=== PATIENT | female | born 1965 | race Caucasian/White ===

== ENCOUNTER 2016-10-25 13:46 | Emergency (ER) ==
[2016-10-25 14:14] LABS: URINE CULTURE PL NEEDED? NO; URINE SOURCE CLEAN CATCH
[2016-10-25 14:18] LABS: MANUAL DIFF NEEDED? NO
[2016-10-25 14:19] LABS: UR AMPHETAMINES QUAL NONE DETECTED (NONE DETECT); UR BARBITUATES QUAL NONE DETECTED (NONE DETECT); UR BENZODIAZEPIN QUAL NONE DETECTED (NONE DETECT); UR CANNABINOIDS QUAL NONE DETECTED (NONE DETECT); UR COCAINE QUAL NONE DETECTED (NONE DETECT); UR MDMA QUAL NONE DETECTED (NONE DETECT); UR METHADONE QUAL NONE DETECTED (NONE DETECT); UR METHAMPHETAMINE QUAL NONE DETECTED (NONE DETECT); UR OPIATES QUAL NONE DETECTED (NONE DETECT); UR OXYCODONE QUAL NONE DETECTED (NONE DETECT); UR PCP QUAL NONE DETECTED (NONE DETECT); UR TCA QUAL NONE DETECTED (NONE DETECT)
[2016-10-25 14:20] LABS: BILIRUBIN URINE NEGATIVE (NEGATIVE); BLOOD URINE NEGATIVE (NEGATIVE); CLARITY CLEAR (CLEAR); COLOR YELLOW; GLUCOSE URINE NEGATIVE (NEGATIVE); LEUKOCYTES URINE NEGATIVE (NEGATIVE); NITRITE URINE NEGATIVE (NEGATIVE); PH URINE 6.5; PROTEIN URINE NEGATIVE (NEGATIVE); SP GRAVITY URINE 1.005; UROBILINOGEN URINE NORMAL
[2016-10-25 14:24] LABS: BASO% 0.6 % (0.0-0.8); EOS# 0.02 X1000 (0.0-0.7); EOS% 0.3 % (0.0-10.0); HEMATOCRIT 47.4 % (37.0-47.0); HEMOGLOBIN 16.2 g/dL (12.0-16.0); IMM GRAN# 0.01 X1000 (0.0-0.04); IMM GRAN% 0.1 % (0.0-0.5); LYMPH# 1.94 X1000 (1.2-3.4); LYMPH% 27.3 % (20.5-51.1); MCH 31.1 PG (27-31); MCHC 34.2 g/dL (33-37); MONO# 0.45 X1000 (0.11-0.59); MONO% 6.3 % (1.7-9.3); NEUT% 65.4 % (42.2-75.2); PLT 296 X1000 (130-400); RBC 5.21 XMIL (4.2-5.4)
--- NOTE | 2016-10-25 14:24 | PROVIDER DOCUMENTATION ---
HPI-Psychological Disorder - General Source: patient - History of Present Illness-Psych Onset/Duration: reports: last night Timing: reports: still present Severity: reports: moderate Situational problems related to:: reports: recent Psychiatric Complaints: reports: suicidal ideation Substance Use: reports: none/never Previous psych related hospitalizations?: Yes Patient arrived by:: private car Similar Symptoms Previously?: Yes Recently seen or treated by another doctor?: No <Jewels Del Rio - Last Filed: 10/25/16 18:04> <Alphonse Carreno - Last Filed: 10/25/16 21:13> <Shannan Robertson - Last Filed: 10/25/16 21:17> - General Chief Complaint: Psych Stated Complaint: suicidal ideation Time Seen by Provider: 10/25/16 13:59 Allergies/Adverse Reactions: Patient Allergies Allergy/AdvReac Type Severity Reaction Status Date / Time codeine Allergy Intermediate VOMITING Verified 10/25/16 13:52 hydrocodone bitartrate * Allergy Intermediate VOMITING Verified 10/25/16 13:52 [From Lortab] Home Medications: Home Medication List Medication Instructions Recorded Confirmed Last Taken Type Buspirone [Buspar] 5 mg PO TID 10/25/16 10/25/16 Unknown History Buspirone [Buspar] 5 mg PO TID #90 tablet 10/25/16 Unknown Rx Doxepin [Sinequan] 25 mg PO DAILY 10/25/16 10/25/16 Unknown History Doxepin [Sinequan] 25 mg PO DAILY #30 capsule 10/25/16 Unknown Rx Vortioxetine Hydrobromide 10 mg PO DAILY 10/25/16 10/25/16 Unknown History [Trintellix] Vortioxetine Hydrobromide 10 mg PO DAILY #30 tablet 10/25/16 Unknown Rx [Trintellix] - History of Present Illness-Psych Nature of Presenting Problem: Reports hx of Bipolar compliant with medications reports SI. States could feel the bipolar getting worse past two weeks then a family member and last night pt started cutting wrist. Reports has been to [facility] before. Reports no plan. (Jewels Del Rio) Review of Systems - Adult - REVIEW OF SYSTEMS - ADULT Constitutional: denies: chills, fever, fatique Eyes: reports: no symptoms reported Ears, Nose, Mouth & Throat: denies: ear pain, sinus problem, throat pain Cardiovascular: denies: chest pain, irregular heart rate, orthopnea Respiratory: reports: no symptoms reported Gastrointestinal: reports: no symptoms reported Genitourinary: reports: no symptoms reported Musculoskeletal: reports: no symptoms reported Integumentary: reports: no symptoms reported Neurological: reports: no symptoms reported Psychiatric: reports: see HPI, suicidal thoughts. denies: anxiety, depression, emotional problems, panic attacks Endocrine: reports: no symptoms reported Hematologic/Lymphatic: reports: no symptoms reported Allergic/Immunologic: reports: no symptoms reported All Other Systems: Reviewed and Negative <Jewels Del Rio - Last Filed: 10/25/16 18:04> Past History - Adult - PAST MEDICAL HISTORY-ADULT Review of Records: reports: Nursing Assessment Review Major Childhood Illnesses: reports: denies history Cardiovascular: reports: denies history Respiratory: reports: denies history Gastrointestinal: reports: denies history Obstetrical/Gynecological: reports: denies history Genitourinary: reports: denies history Musculoskeletal: reports: denies history Neurological: reports: denies history Psychiatric: reports: bipolar, depression, ptsd, suicide attempt Endocrine/Immune: reports: denies history Other Conditions: reports: denies history - PRIOR SURGERIES/PROCEDURES Surgical/Procedure History: reports: hysterectomy, hernia repair - IMMUNIZATION STATUS Childhood Immunizations: See Nurse Assessment Flu Vaccine: See Nurse Assessment - FAMILY HISTORY Family History: reviewed, not pertinent - SOCIAL HISTORY Smoking: cigarettes, greater than 1 pack/day Provider spent 3-5 mins advising pt. on dangers of tobacco.: Discussed manners to quit use, and f/u contacts for add'l counseling. Substance Use: alcohol <Jewels Del Rio - Last Filed: 10/25/16 18:04> Physical Exam-Psych Focus - Physical Exam-Psych Initial Vital Signs Reviewed: Yes Appearance: appropriate appearance, appropriate insight, neat, no apparent distress, alert Neurological: alert, normal mood/affect, calm, data technician II-XII nml as tested, oriented x 3 Behavior/Eye Contact/Speech: cooperative, good eye contact, normal speech Thoughts/Hallucinations: normal thought pattern, no apparent hallucination Neck: non-tender, full range of motion, supple, normal inspection Respiratory: chest non-tender, lungs clear, normal breath sounds, no pleuratic chest pain, no respiratory distress, no accessory muscle use Cardiovascular: regular rate, rhythm Abdominal Exam: non tender, soft, no organomegaly, no pulsatile mass Extremity: normal range of motion, non-tender Integumentary: normal color, normal turgor, warm/dry <Jewels Del Rio - Last Filed: 10/25/16 18:04> Progress - REASSESSMENT Reassessment #1 Time Reassessed: 15:50 (Pt is in no distress at this time she is in room awaiting on ETOH level to go down before [facility] can be called.) - EKG 1 Time of EKG reading by physician:: 14:13 EKG Read and Signed by:: Brock Christensen EKG Interpretation (*Must complete 3 of following elements*): Normal Rate: 89 Rhythm: nsr [place]: normal QRS: normal [place] Interval: normal ST Wave: normal - CHANGE OF SHIFT REPORT (ED Provider) Report Given and Care Transferred to:: Time of Transfer: 18:00 Items Pending: Other (alcohol level to drop and [facility] consult) <Jewels Del Rio - Last Filed: 10/25/16 18:04> <Alphonse Carreno - Last Filed: 10/25/16 21:13> - PSYCHIATRIC Medically clear for psych eval and/or transfer to [facility].: Yes - CONSULTS/PCP/HOSPITALIST Notification #1 *Consult/PCP/Hospitalist*: Tereso Mann-[facility] Time Discussed: 21:13 (Pt will follow up with out pt treatment and sign a action plan. ) <Shannan Robertson - Last Filed: 10/25/16 21:17> - PLAN OF CARE/RESULTS Progress/Plan/Lab Results: Orders Category Date Time Status ALCOHOL BLOOD Stat Lab 10/25/16 14:14 Received CBC WITH ELECTRONIC DIFF [HEME] Stat Lab 10/25/16 14:14 Results COMPREHENSIVE METABOLIC PANEL [CHEM] Stat Lab 10/25/16 14:14 Received FREE T4 Stat Lab 10/25/16 14:14 Received TEST-URINE [PREG] Stat Lab 10/25/16 13:55 Completed TSH Stat Lab 10/25/16 14:[address] W/POSS RFLX CULT [URINALYSIS] Stat Lab 10/25/16 13:55 Results URINE DRUG SCREEN PL Stat Lab 10/25/16 13:55 Completed VITAMIN B12 Stat Lab 10/25/16 14:14 Received EKG [EKG] Stat Ther 10/25/16 14:05 Ordered Vital Signs - 24 hr 10/25/16 13:49 Temperature 98 F Pulse Rate 97 H Respiratory 18 Rate Blood Pressure 167/108 O2 Sat by Pulse 100 Oximetry Laboratory Tests 10/25/16 10/25/16 10/25/16 13:55 13:55 13:55 Urine Source CLEAN CATCH Urine Color YELLOW Urine Clarity CLEAR Urine pH 6.5 Ur Specific [place] 1.005 Urine Protein NEGATIVE Urine Ketones NEGATIVE Urine Blood NEGATIVE Urine Nitrite NEGATIVE Urine Bilirubin NEGATIVE Urine Urobilinogen NORMAL Urine WBC NEGATIVE Urine Glucose NEGATIVE Urine Test NEGATIVE Urine Opiates Screen NONE DETECTED Ur Oxycodone Screen NONE DETECTED Urine Methadone Screen NONE DETECTED Ur Barbituates Screen NONE DETECTED Ur Tricyclics Screen NONE DETECTED Ur Phencyclidine Scrn NONE DETECTED Ur Amphetamines Screen NONE DETECTED U Methamphetamines Scrn NONE DETECTED Urine MDMA Screen NONE DETECTED U Benzodiazepines Scrn NONE DETECTED Urine Cocaine Screen NONE DETECTED U Cannabinoids Screen NONE DETECTED Laboratory Tests 10/25/16 10/25/16 10/25/16 13:55 13:55 13:55 WBC RBC Hgb Hct MCV MCH MCHC RDW Std Deviation Plt Count MPV Immature Gran % (Auto) Neut % (Auto) Lymph % (Auto) [place] % (Auto) Eos % (Auto) Baso % (Auto) Immature Gran # (Auto) Neut # (Auto) Lymph # (Auto) [place] # (Auto) Eos # (Auto) Baso # (Auto) Sodium Potassium Chloride Carbon Dioxide Anion Gap BUN Creatinine Estimated GFR/1.73 m2 BUN/Creatinine Ratio Glucose Calculated Osmolality Calcium Total Bilirubin AST ALT Alkaline Phosphatase Total Protein Albumin Globulin Albumin/Globulin Ratio Urine Source CLEAN CATCH Urine Color YELLOW Urine Clarity CLEAR Urine pH 6.5 Ur Specific [place] 1.005 Urine Protein NEGATIVE Urine Ketones NEGATIVE Urine Blood NEGATIVE Urine Nitrite NEGATIVE Urine Bilirubin NEGATIVE Urine Urobilinogen NORMAL Urine Microscopic RBC Not Reportable Urine WBC NEGATIVE Urine Microscopic WBC <10 Ur Epithelial Cells >10 A Urine Glucose NEGATIVE Urine Test NEGATIVE Urine Opiates Screen NONE DETECTED Ur Oxycodone Screen NONE DETECTED Urine Methadone Screen NONE DETECTED Ur Barbituates Screen NONE DETECTED Ur Tricyclics Screen NONE DETECTED Ur Phencyclidine Scrn NONE DETECTED Ur Amphetamines Screen NONE DETECTED U Methamphetamines Scrn NONE DETECTED Urine MDMA Screen NONE DETECTED U Benzodiazepines Scrn NONE DETECTED Urine Cocaine Screen NONE DETECTED U Cannabinoids Screen NONE DETECTED Plasma/Serum Ethyl Alc 10/25/16 10/25/16 10/25/16 14:14 14:14 14:14 WBC 7.10 RBC 5.21 Hgb 16.2 H Hct 47.4 H MCV 91.0 MCH 31.1 H MCHC 34.2 RDW Std Deviation 14.0 Plt Count 296 MPV 10.0 Immature Gran % (Auto) 0.1 Neut % (Auto) 65.4 Lymph % (Auto) 27.3 Par[place] % (Auto) 6.3 Eos % (Auto) 0.3 Baso % (Auto) 0.6 Immature Gran # (Auto) 0.01 Neut # (Auto) 4.64 Lymph # (Auto) 1.94 [place] # (Auto) 0.45 Eos # (Auto) 0.02 Baso # (Auto) 0.04 Sodium 139 Potassium 3.7 Chloride 102 Carbon Dioxide 22 L Anion Gap 15 BUN 8 Creatinine 0.8 Estimated GFR/1.73 m2 > 60 BUN/Creatinine Ratio 10 Glucose 77 Calculated Osmolality 275 Calcium 9.4 Total Bilirubin 0.20 AST 28 ALT 30 Alkaline Phosphatase 119 H Total Protein 7.9 Albumin 4.5 Globulin 3.0 Albumin/Globulin Ratio 1.0 Urine Source Urine Color Urine Clarity Urine pH Ur Specific [place] Urine Protein Urine Ketones Urine Blood Urine Nitrite Urine Bilirubin Urine Urobilinogen Urine Microscopic RBC Urine WBC Urine Microscopic WBC Ur Epithelial Cells Urine Glucose Urine Test Urine Opiates Screen Ur Oxycodone Screen Urine Methadone Screen Ur Barbituates Screen Ur Tricyclics Screen Ur Phencyclidine Scrn Ur Amphetamines Screen U Methamphetamines Scrn Urine MDMA Screen U Benzodiazepines Scrn Urine Cocaine Screen U Cannabinoids Screen Plasma/Serum Ethyl Alc 177 H (Jewels Del Rio) Laboratory Tests 10/25/16 10/25/16 10/25/16 13:55 13:55 13:55 WBC RBC Hgb Hct MCV MCH MCHC RDW Std Deviation Plt Count MPV Immature Gran % (Auto) Neut % (Auto) Lymph % (Auto) [place] % (Auto) Eos % (Auto) Baso % (Auto) Immature Gran # (Auto) Neut # (Auto) Lymph # (Auto) [place] # (Auto) Eos # (Auto) Baso # (Auto) Sodium Potassium Chloride Carbon Dioxide Anion Gap BUN Creatinine Estimated GFR/1.73 m2 BUN/Creatinine Ratio Glucose Calculated Osmolality Calcium Total Bilirubin AST ALT Alkaline Phosphatase Total Protein Albumin Globulin Albumin/Globulin Ratio Vitamin B12 TSH Free T4 Urine Source CLEAN CATCH Urine Color YELLOW Urine Clarity CLEAR Urine pH 6.5 Ur Specific [place] 1.005 Urine Protein NEGATIVE Urine Ketones NEGATIVE Urine Blood NEGATIVE Urine Nitrite NEGATIVE Urine Bilirubin NEGATIVE Urine Urobilinogen NORMAL Urine Microscopic RBC Not Reportable Urine WBC NEGATIVE Urine Microscopic WBC <10 Ur Epithelial Cells >10 A Urine Glucose NEGATIVE Urine Test NEGATIVE Urine Opiates Screen NONE DETECTED Ur Oxycodone Screen NONE DETECTED Urine Methadone Screen NONE DETECTED Ur Barbituates Screen NONE DETECTED Ur Tricyclics Screen NONE DETECTED Ur Phencyclidine Scrn NONE DETECTED Ur Amphetamines Screen NONE DETECTED U Methamphetamines Scrn NONE DETECTED Urine MDMA Screen NONE DETECTED U Benzodiazepines Scrn NONE DETECTED Urine Cocaine Screen NONE DETECTED U Cannabinoids Screen NONE DETECTED Plasma/Serum Ethyl Alc 10/25/16 10/25/16 10/25/16 14:14 14:14 14:14 WBC RBC Hgb Hct MCV MCH MCHC RDW Std Deviation Plt Count MPV Immature Gran % (Auto) Neut % (Auto) Lymph % (Auto) [place] % (Auto) Eos % (Auto) Baso % (Auto) Immature Gran # (Auto) Neut # (Auto) Lymph # (Auto) [place] # (Auto) Eos # (Auto) Baso # (Auto) Sodium 139 Potassium 3.7 Chloride 102 Carbon Dioxide 22 L Anion Gap 15 BUN 8 Creatinine 0.8 Estimated GFR/1.73 m2 > 60 BUN/Creatinine Ratio 10 Glucose 77 Calculated Osmolality 275 Calcium 9.4 Total Bilirubin 0.20 AST 28 ALT 30 Alkaline Phosphatase 119 H Total Protein 7.9 Albumin 4.5 Globulin 3.0 Albumin/Globulin Ratio 1.0 Vitamin B12 397 TSH 0.76 Free T4 1.20 Urine Source Urine Color Urine Clarity Urine pH Ur Specific [place] Urine Protein Urine Ketones Urine Blood Urine Nitrite Urine Bilirubin Urine Urobilinogen Urine Microscopic RBC Urine WBC Urine Microscopic WBC Ur Epithelial Cells Urine Glucose Urine Test Urine Opiates Screen Ur Oxycodone Screen Urine Methadone Screen Ur Barbituates Screen Ur Tricyclics Screen Ur Phencyclidine Scrn Ur Amphetamines Screen U Methamphetamines Scrn Urine MDMA Screen U Benzodiazepines Scrn Urine Cocaine Screen U Cannabinoids Screen Plasma/Serum Ethyl Alc 177 H 10/25/16 10/25/16 10/25/16 14:14 17:30 19:04 WBC 7.10 RBC 5.21 Hgb 16.2 H Hct 47.4 H MCV 91.0 MCH 31.1 H MCHC 34.2 RDW Std Deviation 14.0 Plt Count 296 MPV 10.0 Immature Gran % (Auto) 0.1 Neut % (Auto) 65.4 Lymph % (Auto) 27.3 [place] % (Auto) 6.3 Eos % (Auto) 0.3 Baso % (Auto) 0.6 Immature Gran # (Auto) 0.01 Neut # (Auto) 4.64 Lymph # (Auto) 1.94 [place] # (Auto) 0.45 Eos # (Auto) 0.02 Baso # (Auto) 0.04 Sodium Potassium Chloride Carbon Dioxide Anion Gap BUN Creatinine Estimated GFR/1.73 m2 BUN/Creatinine Ratio Glucose Calculated Osmolality Calcium Total Bilirubin AST ALT Alkaline Phosphatase Total Protein Albumin Globulin Albumin/Globulin Ratio Vitamin B12 TSH Free T4 Urine Source Urine Color Urine Clarity Urine pH Ur Specific [place] Urine Protein Urine Ketones Urine Blood Urine Nitrite Urine Bilirubin Urine Urobilinogen Urine Microscopic RBC Urine WBC Urine Microscopic WBC Ur Epithelial Cells Urine Glucose Urine Test Urine Opiates Screen Ur Oxycodone Screen Urine Methadone Screen Ur Barbituates Screen Ur Tricyclics Screen Ur Phencyclidine Scrn Ur Amphetamines Screen U Methamphetamines Scrn Urine MDMA Screen U Benzodiazepines Scrn Urine Cocaine Screen U Cannabinoids Screen Plasma/Serum Ethyl Alc 112 H 82 H Orders Category Date Time Status ALCOHOL BLOOD Stat Lab 10/25/16 14:14 Completed ALCOHOL BLOOD Stat Lab 10/25/16 17:30 Completed ALCOHOL BLOOD Stat Lab 10/25/16 19:04 Completed CBC WITH ELECTRONIC DIFF [HEME] Stat Lab 10/25/16 14:14 Completed COMPREHENSIVE METABOLIC PANEL [CHEM] Stat Lab 10/25/16 14:14 Completed FREE T4 Stat Lab 10/25/16 14:14 Completed TEST-URINE [PREG] Stat Lab 10/25/16 13:55 Completed TSH Stat Lab 10/25/16 14:[address] W/POSS RFLX CULT [URINALYSIS] Stat Lab 10/25/16 13:55 Completed URINE DRUG SCREEN PL Stat Lab 10/25/16 13:55 Completed VITAMIN B12 Stat Lab 10/25/16 14:14 Completed Buspirone [Buspar] Med 10/25/16 21:10 Discontinued 5 mg PO NOW ONE Doxepin [Sinequan] Med 10/25/16 21:11 Discontinued 25 mg PO NOW ONE Lorazepam [Ativan] Med 10/25/16 17:07 Discontinued 1 mg PO NOW ONE EKG [EKG] Stat Ther 10/25/16 14:05 Draft Vital Signs Temp Pulse Resp BP Pulse Ox 10/25/16 13:49 98 F 97 H 18 167/108 100 codeine Allergy (Intermediate, Verified 10/25/16 13:52) VOMITING hydrocodone bitartrate * [From Lortab] Allergy (Intermediate, Verified 10/25/16 13:52) VOMITING Buspirone [Buspar] 5 mg PO TID 10/25/16 Buspirone [Buspar] 5 mg PO TID #90 tablet 10/25/16 Doxepin [Sinequan] 25 mg PO DAILY 10/25/16 Doxepin [Sinequan] 25 mg PO DAILY #30 capsule 10/25/16 Vortioxetine Hydrobromide [Trintellix] 10 mg PO DAILY 10/25/16 Vortioxetine Hydrobromide [Trintellix] 10 mg PO DAILY #30 tablet 10/25/16 Laboratory 10/25/16 10/25/16 10/25/16 19:04 17:30 14:14 WBC 7.10 RBC 5.21 Hgb 16.2 H Hct 47.4 H MCV 91.0 MCH 31.1 H MCHC 34.2 RDW Std Deviation 14.0 Plt Count 296 MPV 10.0 Immature Gran % (Auto) 0.1 Neut % (Auto) 65.4 Lymph % (Auto) 27.3 [place] % (Auto) 6.3 Eos % (Auto) 0.3 Baso % (Auto) 0.6 Immature Gran # (Auto) 0.01 Neut # (Auto) 4.64 Lymph # (Auto) 1.94 [place] # (Auto) 0.45 Eos # (Auto) 0.02 Baso # (Auto) 0.04 Sodium Potassium Chloride Carbon Dioxide Anion Gap BUN Creatinine Estimated GFR/1.73 m2 BUN/Creatinine Ratio Glucose Calculated Osmolality Calcium Total Bilirubin AST ALT Alkaline Phosphatase Total Protein Albumin Globulin Albumin/Globulin Ratio Vitamin B12 TSH Free T4 Urine Source Urine Color Urine Clarity Urine pH Ur Specific [place] Urine Protein Urine Ketones Urine Blood Urine Nitrite Urine Bilirubin Urine Urobilinogen Urine Microscopic RBC Urine WBC Urine Microscopic WBC Ur Epithelial Cells Urine Glucose Urine Test Urine Opiates Screen Ur Oxycodone Screen Urine Methadone Screen Ur Barbituates Screen Ur Tricyclics Screen Ur Phencyclidine Scrn Ur Amphetamines Screen U Methamphetamines Scrn Urine MDMA Screen U Benzodiazepines Scrn Urine Cocaine Screen U Cannabinoids Screen Plasma/Serum Ethyl Alc 82 H 112 H 10/25/16 10/25/16 10/25/16 14:14 14:14 14:14 WBC RBC Hgb Hct MCV MCH MCHC RDW Std Deviation Plt Count MPV Immature Gran % (Auto) Neut % (Auto) Lymph % (Auto) [place] % (Auto) Eos % (Auto) Baso % (Auto) Immature Gran # (Auto) Neut # (Auto) Lymph # (Auto) [place] # (Auto) Eos # (Auto) Baso # (Auto) Sodium 139 Potassium 3.7 Chloride 102 Carbon Dioxide 22 L Anion Gap 15 BUN 8 Creatinine 0.8 Estimated GFR/1.73 m2 > 60 BUN/Creatinine Ratio 10 Glucose 77 Calculated Osmolality 275 Calcium 9.4 Total Bilirubin 0.20 AST 28 ALT 30 Alkaline Phosphatase 119 H Total Protein 7.9 Albumin 4.5 Globulin 3.0 Albumin/Globulin Ratio 1.0 Vitamin B12 397 TSH 0.76 Free T4 1.20 Urine Source Urine Color Urine Clarity Urine pH Ur Specific [place] Urine Protein Urine Ketones Urine Blood Urine Nitrite Urine Bilirubin Urine Urobilinogen Urine Microscopic RBC Urine WBC Urine Microscopic WBC Ur Epithelial Cells Urine Glucose Urine Test Urine Opiates Screen Ur Oxycodone Screen Urine Methadone Screen Ur Barbituates Screen Ur Tricyclics Screen Ur Phencyclidine Scrn Ur Amphetamines Screen U Methamphetamines Scrn Urine MDMA Screen U Benzodiazepines Scrn Urine Cocaine Screen U Cannabinoids Screen Plasma/Serum Ethyl Alc 177 H 10/25/16 10/25/16 10/25/16 13:55 13:55 13:55 WBC RBC Hgb Hct MCV MCH MCHC RDW Std Deviation Plt Count MPV Immature Gran % (Auto) Neut % (Auto) Lymph % (Auto) [place] % (Auto) Eos % (Auto) Baso % (Auto) Immature Gran # (Auto) Neut # (Auto) Lymph # (Auto) [place] # (Auto) Eos # (Auto) Baso # (Auto) Sodium Potassium Chloride Carbon Dioxide Anion Gap BUN Creatinine Estimated GFR/1.73 m2 BUN/Creatinine Ratio Glucose Calculated Osmolality Calcium Total Bilirubin AST ALT Alkaline Phosphatase Total Protein Albumin Globulin Albumin/Globulin Ratio Vitamin B12 TSH Free T4 Urine Source CLEAN CATCH Urine Color YELLOW Urine Clarity CLEAR Urine pH 6.5 Ur Specific [place] 1.005 Urine Protein NEGATIVE Urine Ketones NEGATIVE Urine Blood NEGATIVE Urine Nitrite NEGATIVE Urine Bilirubin NEGATIVE Urine Urobilinogen NORMAL Urine Microscopic RBC Not Reportable Urine WBC NEGATIVE Urine Microscopic WBC <10 Ur Epithelial Cells >10 A Urine Glucose NEGATIVE Urine Test NEGATIVE Urine Opiates Screen NONE DETECTED Ur Oxycodone Screen NONE DETECTED Urine Methadone Screen NONE DETECTED Ur Barbituates Screen NONE DETECTED Ur Tricyclics Screen NONE DETECTED Ur Phencyclidine Scrn NONE DETECTED Ur Amphetamines Screen NONE DETECTED U Methamphetamines Scrn NONE DETECTED Urine MDMA Screen NONE DETECTED U Benzodiazepines Scrn NONE DETECTED Urine Cocaine Screen NONE DETECTED U Cannabinoids Screen NONE DETECTED Plasma/Serum Ethyl Alc (Alphonse Carreno) Departure <Jewels Del Rio - Last Filed: 10/25/16 18:04> - Departure Time of Disposition Order: 21:13 Certified Medical Emergency: Emergent <Alphonse Carreno - Last Filed: 10/25/16 21:13> <Shannan Robertson - Last Filed: 10/25/16 21:17> - Departure DIAGNOSIS: Bipolar disorder Qualifiers: Active/Remission status: currently active Current bipolar episode type: mixed Current episode severity: unspecified Qualified Code(s): F31.60 - Bipolar disorder, current episode mixed, unspecified Disposition: HOME 01 Condition: Good Additional Instructions: contact [facility] to arrange follow up ED Follow Up Instructions: You have been treated by a care provider in the Emergency Department. These instructions are being provided to you so you can have an understanding of how to care for yourself upon discharge. Upon discharge from the Emergency Department, you are responsible for making arrangements for follow-up care by a physician of your choice. Take all prescribed medications as directed. Return to the Emergency Department immediately for any new or worsening symptoms. You may call the Physician Referral phone number at [phone] to obtain a list of Physicians who are taking new patients. Prescriptions: Buspirone [Buspar] 5 mg PO TID #90 tablet Doxepin [Sinequan] 25 mg PO DAILY #30 capsule Vortioxetine Hydrobromide [Trintellix] 10 mg PO DAILY #30 tablet Referrals: None,PCP [Primary Care Provider] - Attestation - Scribe Verification/Attestation Scribe:: Jewels Del Rio Acting as Scribe for:: Brock Christensen Scribe documention review:: This chart was documented by a scribe and accurately reflects the service the provider performed and the decisions made by the provider. - Scribe Verification/Attestation #2 Shift Change Time: 18:00 Scribe Name: Shannan Robertson Acting as Scribe for:: Alphonse Carreno <Jewels Del Rio - Last Filed: 10/25/16 18:04> Physician Attestation - Physician Attestation I, the provider, attest to the following statement:: Brock Christensen Physician documentation Attestation:: This documentation recorded by the scribe accurately reflects the service I personally performed and the decisions made by me. <Jewels Del Rio - Last Filed: 10/25/16 18:04>
[2016-10-25 14:27] LABS: URINE EPITHELIAL CELLS >10 /HPF (<10); URINE WBC <10 /HPF (<10)
[2016-10-25 14:36] LABS: AGAP 15; ALBUMIN 4.5 g/dL (3.5-5.0); ALKALINE PHOSPHATASE 119 U/L (32-104); BUN 8 mg/dL (8-22); CALCIUM 9.4 mg/dL (8.8-10.2); CHLORIDE 102 mmol/L (98-107); COSMO 275; GOT 28 U/L (10-30); GPT 30 U/L (10-36); POTASSIUM 3.7 mmol/L (3.5-5.1); SODIUM 139 mmol/L (136-145); TCO2 22 mmol/L (25-35); TOTAL PROTEIN 7.9 g/dL (6.3-8.3)
--- NOTE | 2016-10-25 14:37 | EKG Report ---
Test Performed on : 10/25/2016 2:13:22 PM Test Reason : Psych Blood Pressure : / mmHG Vent. Rate : 089 BPM Atrial Rate : 089 BPM P-R Int : 148 ms QRS Dur : 084 ms QT Int : 372 ms P-R-T Axes : 068 061 030 degrees QTc Int : 452 ms Normal sinus rhythm. Normal ECG When compared with ECG of 03-DEC-2007 15:32, No significant change was found Unconfirmed Result
[2016-10-25 14:54] LABS: FREE T4 1.2 ng/dL (0.93-1.70)
[2016-10-25] MEDS ORDERED: ATIVAN PO ONE (17:07)
[2016-10-25] MEDS ORDERED: BUSPAR PO ONE (21:10)
[2016-10-25] MEDS ORDERED: SINEQUAN PO ONE (21:11)
[2016-10-25 22:02] VITALS: BP 139/74
== END 2016-10-25 22:00 | disposition home or self-care (01) ==
LOC: P.ED 13:46
DX: F31.60 Bipolar disorder, current episode mixed, unspecified (principal); Z79.899 Other long term (current) drug therapy; F32.9 Major depressive disorder, single episode, unspecified; F43.10 Post-traumatic stress disorder, unspecified; F17.210 Nicotine dependence, cigarettes, uncomplicated; Z71.6 Tobacco abuse counseling
CPT/HCPCS: 80053; 80305; 81001; 81025; 82607; 84439; 84443; 85025; 93005; 99284; G0480; 80320